=== PATIENT | male | born 1945 | race African-American/Black ===

== ENCOUNTER 2020-09-21 07:03 | Inpatient (IN) | payer OTHER ==
[2020-09-21 07:24] VITALS: BMI 28.3
[2020-09-21] MEDS ORDERED: ACETAMINOPHEN 1000 MG/100 ML VIAL (NON FORMULARY) IVPB ONE (08:14)
[2020-09-21] MEDS ORDERED: ACETAMINOPHEN INJECTION 100 ML IVPB ONE (09:02)
[2020-09-21 09:18] LABS: BASO % 0.5 % (0-2.0); EOS % 0.6 % (0-4.5); HEMATOCRIT 40.7 % (35.4-49); HEMOGLOBIN 14.1 GM/dL (11.7-16.9); LYMPH % 25.4 % (8-40); MCH 31.9 pg (25.7-33.7); MCHC 34.7 g/dl (32.0-35.9); MEAN CELL VOLUME 91.9 fl (80-96); MEAN PLT VOLUME 7.9 fl (7.5-11.1); MONO % 11.5 % (3.8-10.2); PLATELET COUNT 186 10^3/uL (134-434); RBC 4.42 M/mm3 (4.00-5.60); RDW 16.4 % (11.9-15.9); WHITE BLOOD COUNT 5.6 K/mm3 (4.0-10.0)
[2020-09-21 09:22] LABS: INR 1.05 (0.83-1.09); PROTHROMBIN TIME (PATIENT) 12.9 SEC (9.7-13.0)
[2020-09-21 09:25] LABS: ACTIVATED PTT 33.6 SECONDS (25.2-36.5)
[2020-09-21 09:41] LABS: CHLORIDE 104 mmol/L (98-107); SODIUM 137 mmol/L (136-145)
[2020-09-21 09:43] LABS: ALBUMIN 4.5 g/dl (3.4-5.0); ANION GAP 9 MMOL/L (8-16); BLOOD UREA NITROGEN 42.9 mg/dL (7-18); CALCIUM 9.2 mg/dL (8.5-10.1); CO2 23 mmol/L (21-32); GLUCOSE,RANDOM 127 mg/dL (74-106)
[2020-09-21 09:47] LABS: CREATININE 2.1 mg/dL (0.55-1.3); SGOT/AST 18 U/L (15-37); SGPT/ALT 26 U/L (13-61)
[2020-09-21 09:49] LABS: BILIRUBIN,TOTAL 1.3 mg/dL (0.2-1); TOT PROT 8.5 g/dl (6.4-8.2)
[2020-09-21 09:50] LABS: ALK PHOS 93 U/L (45-117)
[2020-09-21] MEDS ORDERED: SODIUM CHLORIDE 0.9% 500 ML INFUS.BAG IV ONE (10:00)
[2020-09-21 11:12] LABS: URINE APPEARANCE CLEAR; URINE BILIRUBIN NEGATIVE (NEGATIVE); URINE COLOR YELLOW; URINE GLUCOSE (UA) 3+ (NEGATIVE); URINE KETONE NEGATIVE (NEGATIVE); URINE LEUK ESTERASE NEGATIVE (NEGATIVE); URINE NITRITE NEGATIVE (NEGATIVE); URINE PROTEIN NEGATIVE (NEGATIVE)
[2020-09-21] MEDS ORDERED: HEPARIN NA (PORCINE) 5,000 UNITS/ML 1ML VIAL IVPUSH ONE (13:37)
[2020-09-21] MEDS ORDERED: HEPARIN NA (PORCINE) 5,000 UNITS/ML 1ML VIAL IVPUSH PRN ×2 (13:39)
[2020-09-21] MEDS ORDERED: HEPARIN NA (PORCINE) 5,000 UNITS/ML 1ML VIAL ONE (13:49)
[2020-09-21] MEDS ORDERED: HEPARIN INFUSION - 25,000 UNITS/500 ML INFUS.BAG IVPB ONE (13:49)
[2020-09-21] MEDS: HEPARIN - 25,000 UNIT in SODIUM CHLORIDE 495 ML IV SCH (14:06)
[2020-09-21] MEDS ORDERED: ONDANSETRON 4 MG/2 ML VIAL IVPUSH PRN (16:47)
[2020-09-21] MEDS ORDERED: ACETAMINOPHEN 325 MG TABLET (FP) PO PRN (16:47)
[2020-09-21] MEDS ORDERED: ACETAMINOPHEN 325 MG TABLET (FP) ONE (18:30)
[2020-09-21] MEDS: INSULIN SLIDING SCALE (NOVOLOG) 1 VIAL SQ SCH (23:46)
[2020-09-22] MEDS: INSULIN SLIDING SCALE (NOVOLOG) 1 VIAL SQ SCH ×4 (06:01→21:04)
[2020-09-22 06:40] LABS: BASO % 1.1 % (0-2.0); EOS % 4.2 % (0-4.5); LYMPH % 29.6 % (8-40); MCH 31.1 pg (25.7-33.7); MCHC 34.1 g/dl (32.0-35.9); MEAN CELL VOLUME 91.1 fl (80-96); MEAN PLT VOLUME 7.9 fl (7.5-11.1); MONO % 10.9 % (3.8-10.2); NEUT % 54.2 % (42.8-82.8); PLATELET COUNT 171 10^3/uL (134-434); RDW 16.3 % (11.9-15.9); WHITE BLOOD COUNT 6.1 K/mm3 (4.0-10.0)
[2020-09-22] MEDS ORDERED: TAMSULOSIN HCL 0.4 MG CAP ONE (08:10)
[2020-09-22] MEDS: TAMSULOSIN HCL 0.4 MG CAP PO SCH (08:14)
[2020-09-22] MEDS ORDERED: LOSARTAN POTASSIUM 50 MG TABLET ONE (08:52)
[2020-09-22] MEDS: ALLOPURINOL 100 MG TABLET (FP) PO SCH (09:00)
[2020-09-22] MEDS: NIFEdipine E.R 60 MG TABLET PO SCH (09:00)
[2020-09-22] MEDS ORDERED: SODIUM CHLORIDE 1,000 ML IV SCH (09:30)
[2020-09-22 09:58] LABS: CHLORIDE 108 mmol/L (98-107); SODIUM 139 mmol/L (136-145)
[2020-09-22 09:59] LABS: CALCIUM 8.8 mg/dL (8.5-10.1)
[2020-09-22] MEDS ORDERED: LOSARTAN POTASSIUM 50 MG TABLET PO SCH (10:00)
[2020-09-22 10:01] LABS: ANION GAP 10 MMOL/L (8-16); BLOOD UREA NITROGEN 29.2 mg/dL (7-18); CO2 22 mmol/L (21-32); GLUCOSE,RANDOM 103 mg/dL (74-106)
[2020-09-22 10:04] LABS: CREATININE 1.5 mg/dL (0.55-1.3); SGOT/AST 23 U/L (15-37); SGPT/ALT 26 U/L (13-61)
[2020-09-22 10:05] LABS: TOT PROT 8.1 g/dl (6.4-8.2)
[2020-09-22 10:06] LABS: ALK PHOS 85 U/L (45-117)
[2020-09-22 11:12] LABS: URINE APPEARANCE CLEAR; URINE BILIRUBIN NEGATIVE (NEGATIVE); URINE COLOR YELLOW; URINE GLUCOSE (UA) 3+ (NEGATIVE); URINE KETONE NEGATIVE (NEGATIVE); URINE LEUK ESTERASE NEGATIVE (NEGATIVE); URINE NITRITE NEGATIVE (NEGATIVE); URINE PROTEIN NEGATIVE (NEGATIVE); URINE UROBILINOGEN 0.2 mg/dL (0.2-1.0)
[2020-09-22] MEDS: HEPARIN - 25,000 UNIT in SODIUM CHLORIDE 495 ML IV SCH (13:56)
[2020-09-22] MEDS ORDERED: APIXABAN 5 MG TABLET ONE (18:20)
[2020-09-22] MEDS: APIXABAN 5 MG TABLET PO SCH (18:23)
[2020-09-23] MEDS: INSULIN SLIDING SCALE (NOVOLOG) 1 VIAL SQ SCH ×2 (06:16→11:08)
[2020-09-23 08:17] LABS: BASO % 0.4 % (0-2.0); EOS % 6.2 % (0-4.5); HEMATOCRIT 40.4 % (35.4-49); HEMOGLOBIN 13.7 GM/dL (11.7-16.9); MCH 30.9 pg (25.7-33.7); MCHC 33.9 g/dl (32.0-35.9); MEAN CELL VOLUME 91.3 fl (80-96); MEAN PLT VOLUME 8.2 fl (7.5-11.1); MONO % 9.7 % (3.8-10.2); NEUT % 41.7 % (42.8-82.8); PLATELET COUNT 176 10^3/uL (134-434); RBC 4.43 M/mm3 (4.00-5.60); RDW 16.2 % (11.9-15.9); WHITE BLOOD COUNT 4.8 K/mm3 (4.0-10.0)
[2020-09-23 08:42] LABS: ALBUMIN 3.8 g/dl (3.4-5.0); CALCIUM 8.7 mg/dL (8.5-10.1); MAGNESIUM 2.2 mg/dL (1.8-2.4)
[2020-09-23 08:44] LABS: CREATININE 1.3 mg/dL (0.55-1.3)
[2020-09-23 08:46] LABS: TOT PROT 7.7 g/dl (6.4-8.2)
[2020-09-23 08:52] LABS: BILIRUBIN,TOTAL 0.8 mg/dL (0.2-1)
[2020-09-23] MEDS ORDERED: APIXABAN 5 MG TABLET ONE (10:51)
[2020-09-23] MEDS ORDERED: TAMSULOSIN HCL 0.4 MG CAP ONE (10:51)
[2020-09-23] MEDS ORDERED: NIFEdipine E.R. 30 MG TABLET ONE (10:51)
[2020-09-23] MEDS ORDERED: PT OWN MED DRAWER 7, Y5N ONE (10:52)
[2020-09-23] MEDS: NIFEdipine E.R 60 MG TABLET PO SCH (11:08)
[2020-09-23] MEDS: ALLOPURINOL 100 MG TABLET (FP) PO SCH (11:08)
[2020-09-23] MEDS: APIXABAN 5 MG TABLET PO SCH (11:08)
[2020-09-23] MEDS: TAMSULOSIN HCL 0.4 MG CAP PO SCH (11:08)
[2020-09-23 16:31] VITALS: BP 110/73; PULSE 63; TEMP 97
== END 2020-09-23 17:49 | disposition home or self-care (01) | DRG 176 ==
LOC: JER 07:03 → JERBED 14:43
PROVIDERS: ADMIT Internal Medicine; ATTEND Nurse Practitioner Family
DX: I26.99 Other pulmonary embolism without acute cor pulmonale (principal); N17.9 Acute kidney failure, unspecified; E11.51 Type 2 diabetes mellitus with diabetic peripheral angiopathy without gangrene; M10.9 Gout, unspecified; I10 Essential (primary) hypertension; R07.89 Other chest pain; K14.3 Hypertrophy of tongue papillae
CPT/HCPCS: 36415; 71046-TC-FY; 71275-TC; 76705-TC; 76775-TC; 80053; 81003; 82570; 82962; 83690; 83735; 83970; 84156; 84300; 84484; 85025; 85027; 85379; 85610; 85730; 87086; 87804; 93005; 93010; 93306-TC; 93970-TC; 99285-25; C9803; J0131; J1644; Q9967; U0003; U0005

== ENCOUNTER 2020-12-02 08:55 | Day surgery (SDC) | payer OTHER ==
[2020-11-28 15:03] VITALS: BMI 26.4
[2020-12-02] MEDS ORDERED: MIDAZOLAM HCL 2 MG/2 ML SINGLE DOSE VIAL ONE (10:23)
[2020-12-02 11:07] VITALS: TEMP 97.8
[2020-12-02 11:51] VITALS: BP 122/78; PULSE 76
== END 2020-12-02 11:52 | disposition home or self-care (01) ==
LOC: FASU-ENDO 08:55
PROVIDERS: ATTEND Internal Medicine Gastroenterology
PROC: 0DBL8ZX Excision of Transverse Colon, Via Natural or Artificial Opening Endoscopic, Diagnostic (ICD-10-PCS; 2020-12-02)
PROC: 0DBN8ZX Excision of Sigmoid Colon, Via Natural or Artificial Opening Endoscopic, Diagnostic (ICD-10-PCS; principal; 2020-12-02 10:40)
DX: D12.2 Benign neoplasm of ascending colon (principal); D12.5 Benign neoplasm of sigmoid colon; R19.5 Other fecal abnormalities; K57.30 Diverticulosis of large intestine without perforation or abscess without bleeding; Z79.01 Long term (current) use of anticoagulants
CPT/HCPCS: 82962; 88305-TC

== ENCOUNTER 2021-11-03 09:03 | Day surgery (SDC) | payer OTHER ==
[2021-10-31 18:18] VITALS: BMI 26.4
[2021-11-03 12:29] VITALS: TEMP 97.1
[2021-11-03 13:46] VITALS: BP 122/64; PULSE 73; RESP 19
== END 2021-11-03 13:05 | disposition home or self-care (01) ==
LOC: FASU-ENDO 09:03
PROVIDERS: ATTEND Internal Medicine Gastroenterology
PROC: 0DBK8ZX Excision of Ascending Colon, Via Natural or Artificial Opening Endoscopic, Diagnostic (ICD-10-PCS; 2021-11-03)
PROC: 0DBN8ZX Excision of Sigmoid Colon, Via Natural or Artificial Opening Endoscopic, Diagnostic (ICD-10-PCS; principal; 2021-11-03 11:38)
DX: Z12.11 Encounter for screening for malignant neoplasm of colon (principal); Z86.010 Personal history of colon polyps; K57.30 Diverticulosis of large intestine without perforation or abscess without bleeding; D12.2 Benign neoplasm of ascending colon; D12.5 Benign neoplasm of sigmoid colon
CPT/HCPCS: 82962; 88305-TC

== ENCOUNTER 2022-12-06 13:15 | Inpatient (IN) | payer OTHER ==
[2022-12-06 13:36] VITALS: BMI 27.6
[2022-12-06] MEDS ORDERED: IBUPROFEN 400 MG TABLET (FP) PO ONE ×2 (14:47→14:49)
[2022-12-06] MEDS ORDERED: ACETAMINOPHEN 325 MG TABLET (FP) PO ONE (14:47)
[2022-12-06] MEDS ORDERED: ACETAMINOPHEN 325 MG TABLET (FP) ONE (14:48)
[2022-12-06] MEDS ORDERED: ACETAMINOPHEN 1000 MG/100 ML BAG IVPB ONE (19:30)
[2022-12-06] MEDS ORDERED: ACETAMINOPHEN INJECTION 100 ML IVPB ONE (20:47)
[2022-12-06 20:53] LABS: BASO % 1.4 % (0-2.0); EOS % 6.7 % (0-4.5); HEMATOCRIT 44.8 % (35.4-49); LYMPH % 47.4 % (8-40); MCH 30.9 pg (25.7-33.7); MCHC 33.5 g/dl (32.0-35.9); MEAN CELL VOLUME 92.1 fl (80-96); MEAN PLT VOLUME 7.2 fl (7.5-11.1); MONO % 11.6 % (3.8-10.2); NEUT % 32.9 % (42.8-82.8); PLATELET COUNT 199 10^3/uL (134-434); RBC 4.86 M/mm3 (4.00-5.60); RDW 16.1 % (11.9-15.9); WHITE BLOOD COUNT 5.6 K/mm3 (4.0-10.0)
[2022-12-06 21:11] LABS: POTASSIUM 4.6 mmol/L (3.5-5.1)
[2022-12-06 21:12] LABS: CALCIUM 9.3 mg/dL (8.5-10.1)
[2022-12-06 21:13] LABS: BLOOD UREA NITROGEN 33.7 mg/dL (7-18)
[2022-12-06 21:16] LABS: CREATININE 1.9 mg/dL (0.55-1.3)
[2022-12-06] MEDS ORDERED: SODIUM CHLORIDE 0.9% 500 ML INFUS.BAG IV ONE (21:44)
[2022-12-07 01:33] LABS: PH,URINE 5.5 (5.0-8.0); URINE APPEARANCE CLEAR; URINE BILIRUBIN NEGATIVE (NEGATIVE); URINE COLOR YELLOW; URINE GLUCOSE (UA) 3+ (NEGATIVE); URINE KETONE NEGATIVE (NEGATIVE); URINE LEUK ESTERASE NEGATIVE (NEGATIVE); URINE NITRITE NEGATIVE (NEGATIVE); URINE PROTEIN NEGATIVE (NEGATIVE); URINE UROBILINOGEN 0.2 mg/dL (0.2-1.0)
[2022-12-07] MEDS ORDERED: SODIUM CHLORIDE 1,000 ML IV SCH (03:15)
[2022-12-07] MEDS ORDERED: TAMSULOSIN HCL 0.4 MG CAP PO SCH (08:30)
[2022-12-07] MEDS: INSULIN SLIDING SCALE (NOVOLOG) 1 VIAL SQ SCH ×3 (08:36→18:29)
[2022-12-07] MEDS ORDERED: ACETAMINOPHEN 1000 MG/100 ML BAG IVPB PRN (08:56)
[2022-12-07] MEDS ORDERED: NIFEdipine E.R 60 MG TABLET PO SCH (10:00)
[2022-12-07] MEDS ORDERED: LOSARTAN POTASSIUM 50 MG TABLET PO SCH (10:00)
[2022-12-07] MEDS ORDERED: ALLOPURINOL 300 MG TABLET (FP) PO SCH (10:00)
[2022-12-07] MEDS ORDERED: APIXABAN 5 MG TABLET PO SCH (10:00)
[2022-12-07] MEDS ORDERED: CLOPIDOGREL BISULFATE 75 MG TABLET (FP) PO SCH (10:00)
[2022-12-07 12:08] VITALS: BP 101/60; PULSE 72; RESP 18; TEMP 98.3
[2022-12-07] MEDS ORDERED: ATORVASTATIN CA 80 MG TABLET (FP) PO SCH (22:00)
== END 2022-12-07 19:55 | disposition home health service (06) | DRG 563 ==
LOC: JER 13:15 → JERFT 13:15 → JERBED 21:19 → OBSVTOIN 21:19
PROVIDERS: ADMIT Internal Medicine; ATTEND Internal Medicine
DX: S83.211A Bucket-handle tear of medial meniscus, current injury, right knee, initial encounter (principal); N17.9 Acute kidney failure, unspecified; N40.0 Benign prostatic hyperplasia without lower urinary tract symptoms; E78.5 Hyperlipidemia, unspecified; Z86.16 Personal history of COVID-19; E11.51 Type 2 diabetes mellitus with diabetic peripheral angiopathy without gangrene; M10.9 Gout, unspecified; I12.9 Hypertensive chronic kidney disease with stage 1 through stage 4 chronic kidney disease, or unspecified chronic kidney disease; E11.22 Type 2 diabetes mellitus with diabetic chronic kidney disease; N18.9 Chronic kidney disease, unspecified; I25.10 Atherosclerotic heart disease of native coronary artery without angina pectoris; Z79.84 Long term (current) use of oral hypoglycemic drugs; W19.XXXA Unspecified fall, initial encounter; Y93.89 Activity, other specified; Y92.89 Other specified places as the place of occurrence of the external cause; Y99.8 Other external cause status
CPT/HCPCS: 36415; 73562-TC-RT-FY; 73721-RT-TC; 76775-TC; 76882-TC-RT-FY; 80048; 81003; 82550; 82553; 82962; 85025; 93005; 93010; 97116-GP; 97161-GP; 99285-25

== ENCOUNTER 2023-09-06 15:56 | Observation (INO) | payer OTHER ==
[2023-09-06 18:50] LABS: BASO % 0.7 % (0-2.0); HEMATOCRIT 42.9 % (35.4-49); HEMOGLOBIN 14.4 GM/dL (11.7-16.9); LYMPH % 48.7 % (8-40); MCH 30.9 pg (25.7-33.7); MCHC 33.7 g/dl (32.0-35.9); MEAN CELL VOLUME 91.8 fl (80-96); MEAN PLT VOLUME 7.4 fl (7.5-11.1); MONO % 10.1 % (3.8-10.2); NEUT % 36.5 % (42.8-82.8); PLATELET COUNT 254 10^3/uL (134-434); RBC 4.67 M/mm3 (4.00-5.60); RDW 16.5 % (11.9-15.9); WHITE BLOOD COUNT 5.6 K/mm3 (4.0-10.0)
[2023-09-06 19:12] LABS: POTASSIUM 5.9 mmol/L (3.5-5.1)
[2023-09-06 19:15] LABS: ALBUMIN 4.5 g/dl (3.4-5.0); BLOOD UREA NITROGEN 56.6 mg/dL (7-18)
[2023-09-06 19:18] LABS: CREATININE 2.8 mg/dL (0.55-1.3)
[2023-09-06 19:20] LABS: BILIRUBIN,TOTAL 0.4 mg/dL (0.2-1); TOT PROT 8.3 g/dl (6.4-8.2)
[2023-09-06] MEDS ORDERED: CALCIUM GLUCONATE 10% - 1,000 MG/10 ML VIAL ONE (20:18)
[2023-09-06] MEDS: SODIUM CHLORIDE 0.9% 500 ML INFUS.BAG IV ONE (20:46)
[2023-09-06] MEDS: CALCIUM GLUCONATE 10% - 1,000 MG/10 ML VIAL IVPB ONE (20:46)
[2023-09-06] MEDS ORDERED: SODIUM ZIRCONIUM CYCLOSILICATE (LOKELMA) 10 GM PACKET ONE (22:42)
[2023-09-06] MEDS: SODIUM ZIRCONIUM CYCLOSILICATE (LOKELMA) 5 GM PACKET PO ONE (22:49)
[2023-09-07] MEDS ORDERED: DOCUSATE SODIUM 100 MG CAPSULE (FP) PO PRN (00:08)
[2023-09-07] MEDS ORDERED: ACETAMINOPHEN 325 MG TABLET (FP) PO PRN ×2 (00:08→18:34)
[2023-09-07] MEDS ORDERED: TAMSULOSIN HCL 0.4 MG CAP ONE (01:11)
[2023-09-07] MEDS: SODIUM CHLORIDE 1,000 ML IV SCH (01:24)
[2023-09-07] MEDS: TAMSULOSIN HCL 0.4 MG CAP PO SCH (01:24)
[2023-09-07 01:54] LABS: CALCIUM 9.7 mg/dL (8.5-10.1)
[2023-09-07 01:58] LABS: CREATININE 2.2 mg/dL (0.55-1.3)
[2023-09-07 02:19] LABS: BLOOD UREA NITROGEN 49.7 mg/dL (7-18)
[2023-09-07 07:20] LABS: BASO % 0.5 % (0-2.0); EOS % 4.8 % (0-4.5); HEMATOCRIT 41.6 % (35.4-49); HEMOGLOBIN 13.8 GM/dL (11.7-16.9); MCHC 33.2 g/dl (32.0-35.9); MEAN CELL VOLUME 93.3 fl (80-96); MEAN PLT VOLUME 7.8 fl (7.5-11.1); NEUT % 28.7 % (42.8-82.8); PLATELET COUNT 219 10^3/uL (134-434); RBC 4.46 M/mm3 (4.00-5.60); RDW 15.8 % (11.9-15.9); WHITE BLOOD COUNT 4.1 K/mm3 (4.0-10.0)
[2023-09-07] MEDS: INSULIN ASPART SLIDING SCALE (NOVOLOG) 1 VIAL SQ SCH (07:37)
[2023-09-07 07:38] LABS: POTASSIUM 5.8 mmol/L (3.5-5.1)
[2023-09-07 07:39] LABS: CALCIUM 9.7 mg/dL (8.5-10.1)
[2023-09-07 07:40] LABS: BLOOD UREA NITROGEN 47.3 mg/dL (7-18); MAGNESIUM 2.2 mg/dL (1.8-2.4)
[2023-09-07 07:43] LABS: PHOSPHOROUS 3.4 mg/dL (2.5-4.9)
[2023-09-07] MEDS ORDERED: SODIUM ZIRCONIUM CYCLOSILICATE (LOKELMA) 10 GM PACKET ONE ×2 (07:59→12:07)
[2023-09-07] MEDS ORDERED: CALCIUM GLUC IN NACL, ISO-OSM 1 GM/50 ML BAG IVPB ONE (08:01)
[2023-09-07] MEDS: CALCIUM GLUCONATE IN NACL 1 GM/50 ML BAG IVPB ONE (08:19)
[2023-09-07] MEDS: SODIUM ZIRCONIUM CYCLOSILICATE (LOKELMA) 5 GM PACKET PO ONE (08:19)
[2023-09-07] MEDS ORDERED: ALLOPURINOL 300 MG TABLET (FP) PO SCH (10:00)
[2023-09-07] MEDS ORDERED: SODIUM ZIRCONIUM CYCLOSILICATE (LOKELMA) 5 GM PACKET PO SCH (10:00)
[2023-09-07] MEDS: NIFEdipine E.R 60 MG TABLET PO SCH (10:14)
[2023-09-07] MEDS: metoPROLOL SUCCINATE 25 MG TAB.SR.24H (FP) PO SCH (10:14)
[2023-09-07] MEDS: CLOPIDOGREL BISULFATE 75 MG TABLET (FP) PO SCH (10:14)
[2023-09-07] MEDS: ALLOPURINOL 100 MG TABLET (FP) PO SCH (10:14)
[2023-09-07] MEDS ORDERED: INSULIN ASPART SLIDING SCALE (NOVOLOG) 1 VIAL SQ ONE (12:08)
[2023-09-07] MEDS: SODIUM CHLORIDE 0.45% 1,000 ML IV SCH (12:20)
[2023-09-07] MEDS: SODIUM ZIRCONIUM CYCLOSILICATE (LOKELMA) 5 GM PACKET PO SCH (12:20)
[2023-09-07 20:07] VITALS: BMI 28.8
[2023-09-07] MEDS: HEPARIN NA (PORCINE) 5,000 UNITS/ML 1ML VIAL SQ SCH (21:34)
[2023-09-07] MEDS: ATORVASTATIN CA 80 MG TABLET (FP) PO SCH (21:34)
[2023-09-08 08:02] LABS: BASO % 0.6 % (0-2.0); EOS % 5.4 % (0-4.5); HEMATOCRIT 41.9 % (35.4-49); HEMOGLOBIN 14.1 GM/dL (11.7-16.9); LYMPH % 49.5 % (8-40); MCH 30.9 pg (25.7-33.7); MCHC 33.7 g/dl (32.0-35.9); MEAN CELL VOLUME 91.8 fl (80-96); MEAN PLT VOLUME 8.1 fl (7.5-11.1); MONO % 9.4 % (3.8-10.2); NEUT % 35.1 % (42.8-82.8); PLATELET COUNT 244 10^3/uL (134-434); RBC 4.56 M/mm3 (4.00-5.60); RDW 15.7 % (11.9-15.9); WHITE BLOOD COUNT 4.2 K/mm3 (4.0-10.0)
[2023-09-08 08:23] LABS: POTASSIUM 5.1 mmol/L (3.5-5.1)
[2023-09-08 08:29] LABS: CALCIUM 9.9 mg/dL (8.5-10.1)
[2023-09-08 08:30] LABS: BLOOD UREA NITROGEN 31.7 mg/dL (7-18); MAGNESIUM 2.1 mg/dL (1.8-2.4)
[2023-09-08 08:33] LABS: CREATININE 1.5 mg/dL (0.55-1.3)
[2023-09-08 15:41] VITALS: BP 137/79; PULSE 65; RESP 19; TEMP 96.9
[2023-09-08] MEDS ORDERED: APIXABAN 5 MG TABLET PO SCH (22:00)
== END 2023-09-08 18:14 | disposition home or self-care (01) ==
LOC: JER 15:56 → INTOOBSV 19:49 → JERBED 19:49 → J4W 09-07 19:56
PROVIDERS: ADMIT Internal Medicine; ATTEND Nurse Practitioner
PROC: 3E023GC Introduction of Other Therapeutic Substance into Muscle, Percutaneous Approach (ICD-10-PCS; principal; 2023-09-06)
PROC: 3E0337Z Introduction of Electrolytic and Water Balance Substance into Peripheral Vein, Percutaneous Approach (ICD-10-PCS; 2023-09-06)
PROC: 3E033GC Introduction of Other Therapeutic Substance into Peripheral Vein, Percutaneous Approach (ICD-10-PCS; 2023-09-06)
DX: N17.9 Acute kidney failure, unspecified (principal); R94.4 Abnormal results of kidney function studies; E87.5 Hyperkalemia; I10 Essential (primary) hypertension; I73.9 Peripheral vascular disease, unspecified; E11.9 Type 2 diabetes mellitus without complications; N40.0 Benign prostatic hyperplasia without lower urinary tract symptoms; K92.2 Gastrointestinal hemorrhage, unspecified; E78.5 Hyperlipidemia, unspecified; M10.9 Gout, unspecified; Z86.711 Personal history of pulmonary embolism; Z87.891 Personal history of nicotine dependence
CPT/HCPCS: 36415; 76775-TC; 80048; 80053; 82962; 83036; 83735; 84100; 85025; 93005; 93010; 96361; 96372; 96374; 99285-25; G0378; J1644

== ENCOUNTER 2023-12-01 14:30 | Inpatient (IN) | payer OTHER ==
[2023-12-01] MEDS ORDERED: PIPERACILLIN/TAZOB 3.375 GM 3.375 GM/50 ML BAG IVPB ONE ×2 (15:45→23:01)
[2023-12-01] MEDS ORDERED: ACETAMINOPHEN INJECTION 100 ML ONE ×2 (15:45→23:27)
[2023-12-01] MEDS: ACETAMINOPHEN 1000 MG/100 ML BAG IVPB ONE (16:06)
[2023-12-01] MEDS: PIPERACILLIN/TAZOB 3.375 GM 3.375 GM in DEXTROSE 5%-WATER - 50 ML IVPB ONE (16:06)
[2023-12-01] MEDS: SODIUM CHLORIDE 0.9% 500 ML INFUS.BAG IV ONE ×2 (16:07→22:11)
[2023-12-01 16:11] LABS: VENOUS O2 SATURATION 50.3 % (70-80); VENOUS PCO2 33.9 mmHg (38-52); VENOUS PH 7.406 (7.310-7.410)
[2023-12-01 16:12] LABS: BASO % 0.4 % (0-2.0); EOS % 0.1 % (0-4.5); HEMATOCRIT 45.3 % (35.4-49); HEMOGLOBIN 15.1 GM/dL (11.7-16.9); LYMPH % 9.7 % (8-40); MCH 31.1 pg (25.7-33.7); MCHC 33.4 g/dl (32.0-35.9); MEAN PLT VOLUME 7.7 fl (7.5-11.1); MONO % 9.5 % (3.8-10.2); NEUT % 80.3 % (42.8-82.8); PLATELET COUNT 177 10^3/uL (134-434); RBC 4.87 M/mm3 (4.00-5.60); WHITE BLOOD COUNT 7.1 K/mm3 (4.0-10.0)
[2023-12-01 16:15] LABS: PH,URINE 6.5 (5.0-8.0); URINE APPEARANCE CLEAR; URINE BILIRUBIN NEGATIVE (NEGATIVE); URINE COLOR YELLOW; URINE GLUCOSE (UA) 3+ (NEGATIVE); URINE KETONE TRACE (NEGATIVE); URINE LEUK ESTERASE NEGATIVE (NEGATIVE); URINE NITRITE NEGATIVE (NEGATIVE); URINE PROTEIN NEGATIVE (NEGATIVE)
[2023-12-01 16:20] LABS: INR 1.5 (0.83-1.09); PROTHROMBIN TIME (PATIENT) 16.8 SEC (9.7-13.0)
[2023-12-01 16:22] LABS: ACTIVATED PTT 38.4 SECONDS (25.2-36.5)
[2023-12-01 16:30] LABS: POTASSIUM 5.4 mmol/L (3.5-5.1)
[2023-12-01 16:31] LABS: ALBUMIN 4.2 g/dl (3.4-5.0); BLOOD UREA NITROGEN 25.6 mg/dL (7-18)
[2023-12-01 16:36] LABS: CREATININE 1.7 mg/dL (0.55-1.3); TOT PROT 7.9 g/dl (6.4-8.2)
[2023-12-01 16:37] LABS: BILIRUBIN,TOTAL 1.9 mg/dL (0.2-1)
[2023-12-01 16:38] LABS: LACTIC ACID 2.5 mmol/L (0.4-2.0)
[2023-12-01 22:27] LABS: BASO % 0.5 % (0-2.0); HEMATOCRIT 38.7 % (35.4-49); HEMOGLOBIN 12.9 GM/dL (11.7-16.9); LYMPH % 20.6 % (8-40); MCH 31.2 pg (25.7-33.7); MCHC 33.3 g/dl (32.0-35.9); MEAN CELL VOLUME 93.7 fl (80-96); MEAN PLT VOLUME 7.6 fl (7.5-11.1); MONO % 8.8 % (3.8-10.2); NEUT % 70.1 % (42.8-82.8); PLATELET COUNT 181 10^3/uL (134-434); RBC 4.12 M/mm3 (4.00-5.60); RDW 15.9 % (11.9-15.9); WHITE BLOOD COUNT 6.2 K/mm3 (4.0-10.0)
[2023-12-01] MEDS: PIPERACILLIN/TAZOB 3.375 GM 3.375 GM in DEXTROSE 5%-WATER - 50 ML IVPB SCH (23:09)
[2023-12-01] MEDS: ACETAMINOPHEN 1000 MG/100 ML BAG IVPB PRN (23:28)
[2023-12-01] MEDS: SODIUM CHLORIDE 1,000 ML IV STA (23:37)
[2023-12-02 01:09] LABS: BASO % 0.4 % (0-2.0); HEMATOCRIT 30.7 % (35.4-49); HEMOGLOBIN 10.2 GM/dL (11.7-16.9); LYMPH % 15.4 % (8-40); MCH 31.4 pg (25.7-33.7); MCHC 33.1 g/dl (32.0-35.9); MEAN CELL VOLUME 94.8 fl (80-96); MEAN PLT VOLUME 7.8 fl (7.5-11.1); MONO % 7.3 % (3.8-10.2); NEUT % 76.9 % (42.8-82.8); PLATELET COUNT 155 10^3/uL (134-434); RBC 3.24 M/mm3 (4.00-5.60); WHITE BLOOD COUNT 7.4 K/mm3 (4.0-10.0)
[2023-12-02] MEDS: SODIUM CHLORIDE 1,000 ML IV STA (01:10)
[2023-12-02 01:42] LABS: LACTIC ACID 6.5 mmol/L (0.4-2.0)
[2023-12-02 03:16] LABS: VENOUS BASE EXCESS -10.6 mmol/L (-2-2); VENOUS O2 SATURATION 55.8 % (70-80); VENOUS PCO2 31.4 mmHg (38-52); VENOUS PH 7.291 (7.310-7.410)
[2023-12-02] MEDS ORDERED: HYDROmorphone HCl 2 MG/ML VIAL IVPUSH PRN (03:24)
[2023-12-02] MEDS: NOREPINEPHRINE 0.9 % NACL 8 MG/250 ML BAG IVPB SCH (04:40)
[2023-12-02] MEDS: LACTATED RINGERS SOLUTION 1,000 ML/1,000 ML INFUS.BAG IV SCH (04:44)
[2023-12-02 07:31] LABS: HEMATOCRIT 34.8 % (35.4-49); HEMOGLOBIN 11.8 GM/dL (11.7-16.9); MCH 30.9 pg (25.7-33.7); MCHC 33.8 g/dl (32.0-35.9); MEAN CELL VOLUME 91.2 fl (80-96); MEAN PLT VOLUME 7.8 fl (7.5-11.1); PLATELET COUNT 134 10^3/uL (134-434); RBC 3.82 M/mm3 (4.00-5.60); WHITE BLOOD COUNT 7.6 K/mm3 (4.0-10.0)
[2023-12-02 07:32] LABS: INR 1.42 (0.83-1.09); PROTHROMBIN TIME (PATIENT) 15.9 SEC (9.7-13.0)
[2023-12-02 07:34] LABS: ACTIVATED PTT 28.3 SECONDS (25.2-36.5)
[2023-12-02 07:48] LABS: POTASSIUM 5.6 mmol/L (3.5-5.1)
[2023-12-02 08:07] LABS: BLOOD UREA NITROGEN 34.9 mg/dL (7-18); MAGNESIUM 1.7 mg/dL (1.8-2.4)
[2023-12-02 08:10] LABS: PHOSPHOROUS 3.7 mg/dL (2.5-4.9)
[2023-12-02 08:11] LABS: ALBUMIN 2.9 g/dl (3.4-5.0); BILIRUBIN,TOTAL 1.2 mg/dL (0.2-1); CALCIUM 7.2 mg/dL (8.5-10.1)
[2023-12-02 08:16] LABS: TOT PROT 5.4 g/dl (6.4-8.2)
[2023-12-02 08:21] VITALS: BMI 28.4
[2023-12-02] MEDS: MAGNESIUM 1GM/D5W 100ML - 100 ML IVPB IVPB ONE (09:24)
[2023-12-02] MEDS: PANTOPRAZOLE SODIUM 40 MG VIAL IVPUSH SCH (09:24)
[2023-12-02] MEDS: MUPIROCIN 2% TOPICAL OINTMENT FOR DECOLONIZATION NS SCH (09:34)
[2023-12-02 15:01] LABS: HEMOGLOBIN 11.2 GM/dL (11.7-16.9); MCH 30.9 pg (25.7-33.7); MCHC 34.1 g/dl (32.0-35.9); MEAN CELL VOLUME 90.8 fl (80-96); MEAN PLT VOLUME 7.9 fl (7.5-11.1); PLATELET COUNT 124 10^3/uL (134-434); RBC 3.63 M/mm3 (4.00-5.60)
[2023-12-02] MEDS: SODIUM BICARBONATE 8.4% 50 MEQ/50 ML DISP.SYRIN IVPUSH ONE (16:00)
[2023-12-02] MEDS: PIPERACILLIN/TAZOB 3.375 GM 50 ML IVPB SCH (17:27)
[2023-12-02] MEDS: PIPERACILLIN/TAZOB 3.375 GM 3.375 GM in DEXTROSE 5%-WATER - 50 ML IVPB SCH (19:54)
[2023-12-02] MEDS: CHLORHEXIDINE GLUCONATE 4% CLEANSER FOR DECOLONIZATION TP SCH (22:34)
[2023-12-03] MEDS: NIFEdipine E.R 60 MG TABLET PO ONE (01:38)
[2023-12-03] MEDS: metoPROLOL SUCCINATE 25 MG TAB.SR.24H (FP) PO ONE (01:38)
[2023-12-03 06:55] LABS: BASO % 0.3 % (0-2.0); EOS % 0.6 % (0-4.5); HEMATOCRIT 31.8 % (35.4-49); HEMOGLOBIN 10.7 GM/dL (11.7-16.9); LYMPH % 16.6 % (8-40); MCH 30.8 pg (25.7-33.7); MCHC 33.5 g/dl (32.0-35.9); MEAN CELL VOLUME 91.9 fl (80-96); MEAN PLT VOLUME 8.1 fl (7.5-11.1); MONO % 10.2 % (3.8-10.2); NEUT % 72.3 % (42.8-82.8); PLATELET COUNT 131 10^3/uL (134-434); RBC 3.46 M/mm3 (4.00-5.60); RDW 18.1 % (11.9-15.9); WHITE BLOOD COUNT 10.1 K/mm3 (4.0-10.0)
[2023-12-03 07:15] LABS: POTASSIUM 4.3 mmol/L (3.5-5.1)
[2023-12-03 07:32] LABS: ALBUMIN 3.2 g/dl (3.4-5.0)
[2023-12-03 07:33] LABS: BLOOD UREA NITROGEN 29.1 mg/dL (7-18); CALCIUM 8.1 mg/dL (8.5-10.1); MAGNESIUM 2.3 mg/dL (1.8-2.4)
[2023-12-03 07:36] LABS: CREATININE 1.5 mg/dL (0.55-1.3); PHOSPHOROUS 2.7 mg/dL (2.5-4.9)
[2023-12-03] MEDS ORDERED: DEXTROSE 5%-NORMAL SALINE 1,000 ML IV SCH (08:45)
[2023-12-03] MEDS: DEXTROSE 5%-LACTATED RINGERS 1,000 ML IV SCH (09:05)
[2023-12-03] MEDS: ATORVASTATIN CA 80 MG TABLET (FP) PO SCH (22:07)
[2023-12-04] MEDS ORDERED: HYDROmorphone HCl 2 MG/ML VIAL IVPUSH PRN (06:55)
[2023-12-04 08:12] VITALS: RESP 18
[2023-12-04 08:50] LABS: HEMATOCRIT 27.9 % (35.4-49); HEMOGLOBIN 9.5 GM/dL (11.7-16.9); MCH 31.3 pg (25.7-33.7); MCHC 33.9 g/dl (32.0-35.9); MEAN CELL VOLUME 92.2 fl (80-96); MEAN PLT VOLUME 7.8 fl (7.5-11.1); PLATELET COUNT 148 10^3/uL (134-434); RBC 3.03 M/mm3 (4.00-5.60); RDW 17.4 % (11.9-15.9); WHITE BLOOD COUNT 7.9 K/mm3 (4.0-10.0)
[2023-12-04 09:24] LABS: ALBUMIN 3.3 g/dl (3.4-5.0); BLOOD UREA NITROGEN 24.8 mg/dL (7-18); CALCIUM 8.5 mg/dL (8.5-10.1); MAGNESIUM 2.5 mg/dL (1.8-2.4)
[2023-12-04 09:27] LABS: CREATININE 1.4 mg/dL (0.55-1.3); PHOSPHOROUS 2.1 mg/dL (2.5-4.9)
[2023-12-04 09:28] LABS: BILIRUBIN,TOTAL 1.3 mg/dL (0.2-1); TOT PROT 6.2 g/dl (6.4-8.2)
[2023-12-04] MEDS: ALLOPURINOL 100 MG TABLET (FP) PO SCH (09:58)
[2023-12-04] MEDS: TAMSULOSIN HCL 0.4 MG CAP PO SCH (09:58)
[2023-12-04] MEDS: NIFEdipine E.R 60 MG TABLET PO SCH (09:59)
[2023-12-04] MEDS: PANTOPRAZOLE SODIUM 40 MG VIAL IVPUSH SCH (09:59)
[2023-12-04] MEDS ORDERED: MUPIROCIN 2% TOPICAL OINTMENT FOR DECOLONIZATION NS SCH (10:00)
[2023-12-04] MEDS: DEXTROSE 5%-LACTATED RINGERS 1,000 ML IV SCH (10:02)
[2023-12-04] MEDS: PIPERACILLIN/TAZOB 3.375 GM 50 ML IVPB SCH (11:29)
[2023-12-04] MEDS ORDERED: CHLORHEXIDINE GLUCONATE 4% CLEANSER FOR DECOLONIZATION TP SCH (22:00)
[2023-12-05 08:45] LABS: HEMATOCRIT 25.7 % (35.4-49); HEMOGLOBIN 8.7 GM/dL (11.7-16.9); MCH 31.1 pg (25.7-33.7); MCHC 33.8 g/dl (32.0-35.9); MEAN CELL VOLUME 91.8 fl (80-96); MEAN PLT VOLUME 7.7 fl (7.5-11.1); PLATELET COUNT 135 10^3/uL (134-434); RDW 17.5 % (11.9-15.9); WHITE BLOOD COUNT 6.5 K/mm3 (4.0-10.0)
[2023-12-05] MEDS ORDERED: INSULIN ASPART SLIDING SCALE (NOVOLOG) 1 VIAL SQ ONE (09:05)
[2023-12-05 09:11] LABS: CALCIUM 8.2 mg/dL (8.5-10.1)
[2023-12-05 09:12] LABS: BLOOD UREA NITROGEN 14.5 mg/dL (7-18)
[2023-12-05 09:15] LABS: CREATININE 1.3 mg/dL (0.55-1.3)
[2023-12-05 09:16] LABS: BILIRUBIN,TOTAL 1.3 mg/dL (0.2-1)
[2023-12-05 09:17] LABS: TOT PROT 5.9 g/dl (6.4-8.2)
[2023-12-06 07:05] VITALS: TEMP 98.6
[2023-12-06 09:05] VITALS: BP 141/68; PULSE 81
[2023-12-06 12:09] LABS: BASO % 0.3 % (0-2.0); EOS % 2.2 % (0-4.5); HEMATOCRIT 29.1 % (35.4-49); HEMOGLOBIN 9.8 GM/dL (11.7-16.9); LYMPH % 26.9 % (8-40); MCH 30.7 pg (25.7-33.7); MCHC 33.5 g/dl (32.0-35.9); MEAN CELL VOLUME 91.6 fl (80-96); MEAN PLT VOLUME 7.8 fl (7.5-11.1); MONO % 8.7 % (3.8-10.2); NEUT % 61.9 % (42.8-82.8); PLATELET COUNT 187 10^3/uL (134-434); RBC 3.18 M/mm3 (4.00-5.60); RDW 17.6 % (11.9-15.9); WHITE BLOOD COUNT 6.9 K/mm3 (4.0-10.0)
[2023-12-06 12:50] LABS: POTASSIUM 3.9 mmol/L (3.5-5.1)
[2023-12-06 12:53] LABS: CALCIUM 9.3 mg/dL (8.5-10.1); MAGNESIUM 2.2 mg/dL (1.8-2.4)
[2023-12-06 12:55] LABS: ALBUMIN 3.7 g/dl (3.4-5.0); BLOOD UREA NITROGEN 15.6 mg/dL (7-18)
[2023-12-06 12:58] LABS: BILIRUBIN,TOTAL 1.7 mg/dL (0.2-1); CREATININE 1.4 mg/dL (0.55-1.3); TOT PROT 7.2 g/dl (6.4-8.2)
== END 2023-12-06 12:18 | disposition home or self-care (01) | DRG 871 ==
LOC: JER 14:30 → JERBED 21:28 → JICU 12-02 04:17 → J8W 12-03 18:21
PROVIDERS: ADMIT Internal Medicine Pulmonary Disease; ATTEND Nurse Practitioner Acute Care
PROC: 4A133B1 Monitoring of Arterial Pressure, Peripheral, Percutaneous Approach (ICD-10-PCS; principal; 2023-12-02)
PROC: 4A133J1 Monitoring of Arterial Pulse, Peripheral, Percutaneous Approach (ICD-10-PCS; 2023-12-02)
PROC: 05HM33Z Insertion of Infusion Device into Right Internal Jugular Vein, Percutaneous Approach (ICD-10-PCS; 2023-12-02)
PROC: B513ZZA Fluoroscopy of Right Jugular Veins, Guidance (ICD-10-PCS; 2023-12-02)
PROC: 30233N1 Transfusion of Nonautologous Red Blood Cells into Peripheral Vein, Percutaneous Approach (ICD-10-PCS; 2023-12-02)
DX: A41.89 Other specified sepsis (principal); K66.1 Hemoperitoneum; R65.21 Severe sepsis with septic shock; E87.20 Acidosis, unspecified; K40.30 Unilateral inguinal hernia, with obstruction, without gangrene, not specified as recurrent; N17.9 Acute kidney failure, unspecified; I25.10 Atherosclerotic heart disease of native coronary artery without angina pectoris; E78.5 Hyperlipidemia, unspecified; E11.51 Type 2 diabetes mellitus with diabetic peripheral angiopathy without gangrene; N40.0 Benign prostatic hyperplasia without lower urinary tract symptoms; M10.9 Gout, unspecified; I12.9 Hypertensive chronic kidney disease with stage 1 through stage 4 chronic kidney disease, or unspecified chronic kidney disease; E11.22 Type 2 diabetes mellitus with diabetic chronic kidney disease; N18.32 Chronic kidney disease, stage 3b; R50.9 Fever, unspecified; E87.5 Hyperkalemia; R10.11 Right upper quadrant pain; R11.2 Nausea with vomiting, unspecified
CPT/HCPCS: 0241U-QW; 36415; 36430; 71045-TC-FY; 71250-TC; 74176-TC; 76705-TC; 80053; 81003; 82803; 82962; 83036; 83605; 83735; 84100; 84484; 85025; 85027; 85610; 85730; 86140; 86850; 86900; 86901; 87040; 87086; 93005; 93010; 97116-GP; 97161-GP; 99285-25; J0131; P9038; P9058

== ENCOUNTER 2024-02-14 04:17 | Inpatient (IN) | payer OTHER ==
[2024-02-08 11:46] VITALS: BMI 27.5
[2024-02-14] MEDS ORDERED: ceFAZolin SODIUM 1 GM VIAL ONE (07:24)
[2024-02-14] MEDS ORDERED: DEXAMETHASONE SOD PHOSPHATE 4 MG/1 ML VIAL ONE (07:24)
[2024-02-14] MEDS ORDERED: LIDOCAINE HCL/PF 2% SDV 5ML VIAL ONE (07:24)
[2024-02-14] MEDS ORDERED: ACETAMINOPHEN INJECTION 100 ML ONE (07:24)
[2024-02-14] MEDS ORDERED: KETOROLAC TROMETHAMINE 30 MG/1 ML VIAL ONE (07:24)
[2024-02-14] MEDS ORDERED: ONDANSETRON 4 MG/2 ML VIAL ONE (07:24)
[2024-02-14] MEDS ORDERED: ROCURONIUM BROMIDE 50 MG/5 ML SYRINGE ONE ×3 (07:26→10:03)
[2024-02-14] MEDS ORDERED: MIDAZOLAM HCL 2 MG/2 ML SINGLE DOSE VIAL ONE (07:30)
[2024-02-14] MEDS ORDERED: PROPOFOL 40 ML ONE (07:30)
[2024-02-14] MEDS ORDERED: GLYCOPYRROLATE 0.2 MG/1 ML VIAL ONE (07:32)
[2024-02-14] MEDS ORDERED: HEPARIN NA (PORCINE) 5,000 UNITS/ML 1ML VIAL ONE (08:03)
[2024-02-14] MEDS ORDERED: HYDROmorphone HCl 2 MG/ML VIAL ONE (08:26)
[2024-02-14] MEDS ORDERED: MAGNESIUM SULF 50% (8.12 MEQ/2 ML-1 GM VIAL) ONE (08:27)
[2024-02-14] MEDS: ceFAZolin SODIUM 1 GM VIAL IVPB ONE (08:35)
[2024-02-14] MEDS: HEPARIN NA (PORCINE) 5,000 UNITS/ML 1ML VIAL SQ ONE (08:40)
[2024-02-14] MEDS: BUPIVACAINE HCL/PF 0.25% (2.5MG/ML) 10 ML VIAL IJ ONE (08:44)
[2024-02-14] MEDS: cefOXitin SODIUM 1 GM VIAL (RESTRICTED TO ID) IVPB ONE (08:45)
[2024-02-14] MEDS ORDERED: METOCLOPRAMIDE HCL INJECTION 10 MG/2 ML VIAL ONE (08:45)
[2024-02-14] MEDS ORDERED: LABETALOL HCL 20 MG/4 ML VIAL ONE (08:52)
[2024-02-14] MEDS ORDERED: INDOCYANINE GREEN 25 MG/10 ML VIAL IVPUSH ONE (09:24)
[2024-02-14] MEDS ORDERED: ONDANSETRON 4 MG/2 ML VIAL IVPUSH PRN (09:38)
[2024-02-14] MEDS ORDERED: SUGAMMADEX SODIUM 200 MG/2 ML VIAL ONE (11:13)
[2024-02-14] MEDS: LACTATED RINGERS SOLUTION 1,000 ML IV SCH (13:02)
[2024-02-14] MEDS ORDERED: LABETALOL HCL 5 MG/1 ML (100MG/20 ML VIAL) ONE (14:12)
[2024-02-14] MEDS: LABETALOL HCL 20 MG/4 ML VIAL IVPUSH ONE (15:26)
[2024-02-14] MEDS: INSULIN ASPART SLIDING SCALE (NOVOLOG) 1 VIAL SQ SCH (18:16)
[2024-02-14] MEDS: ACETAMINOPHEN 325 MG TABLET (FP) PO SCH (18:19)
[2024-02-14] MEDS: CEFOXITIN SODIUM/DEXTROSE,ISO 2 GM/50 ML BAG IVPB SCH (21:35)
[2024-02-14] MEDS: HEPARIN NA (PORCINE) 5,000 UNITS/ML 1ML VIAL SQ SCH (21:36)
[2024-02-14 22:08] VITALS: RESP 18
[2024-02-15 08:56] LABS: BASO % 0.6 % (0-2.0); EOS % 0.2 % (0-4.5); HEMATOCRIT 39.6 % (35.4-49); HEMOGLOBIN 13.5 GM/dL (11.7-16.9); MCH 29.4 pg (25.7-33.7); MEAN CELL VOLUME 86.6 fl (80-96); MEAN PLT VOLUME 7.7 fl (7.5-11.1); MONO % 11.7 % (3.8-10.2); NEUT % 61.5 % (42.8-82.8); PLATELET COUNT 240 10^3/uL (134-434); RBC 4.57 M/mm3 (4.00-5.60); RDW 17.3 % (11.9-15.9); WHITE BLOOD COUNT 6.5 K/mm3 (4.0-10.0)
[2024-02-15 09:19] LABS: POTASSIUM 4.3 mmol/L (3.5-5.1)
[2024-02-15 09:23] LABS: CALCIUM 8.9 mg/dL (8.5-10.1)
[2024-02-15 09:26] LABS: PHOSPHOROUS 2.8 mg/dL (2.5-4.9)
[2024-02-15 09:27] LABS: CREATININE 1.5 mg/dL (0.55-1.3)
[2024-02-15] MEDS: ALLOPURINOL 100 MG TABLET (FP) PO SCH (09:54)
[2024-02-15] MEDS: metoPROLOL SUCCINATE 25 MG TAB.SR.24H (FP) PO SCH (09:54)
[2024-02-15] MEDS: ATORVASTATIN CA 80 MG TABLET (FP) PO SCH (09:54)
[2024-02-15] MEDS: NIFEdipine E.R. 30 MG TABLET PO SCH (09:54)
[2024-02-15] MEDS: TAMSULOSIN HCL 0.4 MG CAP PO SCH (09:55)
[2024-02-15] MEDS ORDERED: APIXABAN 5 MG TABLET PO SCH (10:00)
[2024-02-15] MEDS ORDERED: NIFEdipine E.R 60 MG TABLET PO SCH (10:00)
[2024-02-15] MEDS ORDERED: CLOPIDOGREL BISULFATE 75 MG TABLET (FP) PO SCH (10:00)
[2024-02-15] MEDS: CLOPIDOGREL BISULFATE 75 MG TABLET (FP) PO SCH ×2 (11:16)
[2024-02-15] MEDS: APIXABAN 5 MG TABLET PO SCH (11:16)
[2024-02-15] MEDS: MAG HYDROX/AL HYDROX/SIMETH 30 ML UNIT-DOSE CUP PO PRN (16:07)
[2024-02-15] MEDS ORDERED: HEPARIN NA (PORCINE) 5,000 UNITS/ML 1ML VIAL SQ SCH (18:00)
[2024-02-15] MEDS: HEPARIN NA (PORCINE) 5,000 UNITS/ML 1ML VIAL SQ SCH (21:35)
[2024-02-16 08:08] LABS: CARCINOEMBRYONIC ANTIGEN 1.4 ng/mL (0.0-4.7)
[2024-02-16 09:38] LABS: BASO % 0.3 % (0-2.0); HEMOGLOBIN 13.9 GM/dL (11.7-16.9); LYMPH % 23.2 % (8-40); MCH 28.5 pg (25.7-33.7); MCHC 32.3 g/dl (32.0-35.9); MEAN CELL VOLUME 88.2 fl (80-96); MEAN PLT VOLUME 7.8 fl (7.5-11.1); MONO % 9.8 % (3.8-10.2); NEUT % 65.7 % (42.8-82.8); PLATELET COUNT 255 10^3/uL (134-434); RBC 4.88 M/mm3 (4.00-5.60); RDW 17.3 % (11.9-15.9); WHITE BLOOD COUNT 6.8 K/mm3 (4.0-10.0)
[2024-02-16 10:08] LABS: ALBUMIN 3.2 g/dl (3.4-5.0); POTASSIUM 4.2 mmol/L (3.5-5.1)
[2024-02-16 10:10] LABS: BLOOD UREA NITROGEN 12.4 mg/dL (7-18); CALCIUM 9.3 mg/dL (8.5-10.1)
[2024-02-16 10:15] LABS: BILIRUBIN,TOTAL 0.9 mg/dL (0.2-1); CREATININE 1.2 mg/dL (0.55-1.3); PHOSPHOROUS 2.2 mg/dL (2.5-4.9); TOT PROT 7.1 g/dl (6.4-8.2)
[2024-02-16] MEDS: APIXABAN 5 MG TABLET PO SCH (21:25)
[2024-02-17 08:24] LABS: BASO % 0.2 % (0-2.0); EOS % 2.2 % (0-4.5); HEMATOCRIT 42.4 % (35.4-49); HEMOGLOBIN 14.1 GM/dL (11.7-16.9); LYMPH % 25.2 % (8-40); MCH 28.7 pg (25.7-33.7); MCHC 33.3 g/dl (32.0-35.9); MEAN CELL VOLUME 86.4 fl (80-96); MEAN PLT VOLUME 7.4 fl (7.5-11.1); MONO % 8.4 % (3.8-10.2); PLATELET COUNT 267 10^3/uL (134-434); RDW 17.5 % (11.9-15.9); WHITE BLOOD COUNT 6.5 K/mm3 (4.0-10.0)
[2024-02-17 08:38] LABS: BLOOD UREA NITROGEN 12.5 mg/dL (7-18); CALCIUM 9.4 mg/dL (8.5-10.1); MAGNESIUM 1.9 mg/dL (1.8-2.4); POTASSIUM 4.6 mmol/L (3.5-5.1)
[2024-02-17 08:42] LABS: CREATININE 1.1 mg/dL (0.55-1.3)
[2024-02-17 08:43] LABS: PHOSPHOROUS 2.6 mg/dL (2.5-4.9)
[2024-02-17] MEDS: NAPH,MB-DB/K PH,MBDB POWDER PACKET PO ONE (09:17)
[2024-02-17 14:05] VITALS: BP 150/75; PULSE 70; TEMP 97.9
== END 2024-02-17 16:58 | disposition home or self-care (01) | DRG 330 ==
LOC: JASU-SURG 04:17 → J2C 13:04 → J6S 17:47
PROVIDERS: ADMIT Surgery; ATTEND Internal Medicine
PROC: 0DBV4ZZ Excision of Mesentery, Percutaneous Endoscopic Approach (ICD-10-PCS; 2024-02-14)
PROC: 0D1B4ZB Bypass Ileum to Ileum, Percutaneous Endoscopic Approach (ICD-10-PCS; 2024-02-14)
PROC: 8E0W4CZ Robotic Assisted Procedure of Trunk Region, Percutaneous Endoscopic Approach (ICD-10-PCS; 2024-02-14)
PROC: 0DB84ZZ Excision of Small Intestine, Percutaneous Endoscopic Approach (ICD-10-PCS; principal; 2024-02-14 08:00)
DX: K63.89 Other specified diseases of intestine (principal); K40.30 Unilateral inguinal hernia, with obstruction, without gangrene, not specified as recurrent; I25.10 Atherosclerotic heart disease of native coronary artery without angina pectoris; I12.9 Hypertensive chronic kidney disease with stage 1 through stage 4 chronic kidney disease, or unspecified chronic kidney disease; E11.22 Type 2 diabetes mellitus with diabetic chronic kidney disease; N18.9 Chronic kidney disease, unspecified; E11.51 Type 2 diabetes mellitus with diabetic peripheral angiopathy without gangrene; M10.9 Gout, unspecified; N40.0 Benign prostatic hyperplasia without lower urinary tract symptoms
CPT/HCPCS: 36415; 80048; 80053; 82378; 82962; 83735; 84100; 85025; 86140; 86301; 88307-TC; 94760; J0131; J1644